=== PATIENT | male | born 1975 | race Caucasian/White ===

== ENCOUNTER 2024-10-15 06:24 | Day surgery (SDC) | payer BC, SELFPAY | END 2024-10-15 10:10 | disposition home or self-care (01) | LOC: GI 06:24 | PROVIDERS: ATTENDING PHYSICIAN Internal Medicine Gastroenterology | DX: Z12.11 Encounter for screening for malignant neoplasm of colon (principal); K57.30 Diverticulosis of large intestine without perforation or abscess without bleeding; K64.0 First degree hemorrhoids; R19.7 Diarrhea, unspecified; K44.9 Diaphragmatic hernia without obstruction or gangrene; K31.89 Other diseases of stomach and duodenum; K31.7 Polyp of stomach and duodenum; R12 Heartburn; R14.0 Abdominal distension (gaseous) | CPT/HCPCS: 45380; 43239; 88305; 88342 ==